=== PATIENT | female | born 1965 | race Hispanic/Latino ===

== ENCOUNTER 2018-02-28 09:55 | Outpatient (CLI) | payer BC ==
--- NOTE | 2018-03-04 10:32 | MMO ---
BILATERAL SCREENING MAMMOGRAMS: DATE: 02/28/18. This study is interpreted with the assistance of computer-aided detection. COMPARISON: 11/23/16, 03/27/13, 04/27/11. FINDINGS: Scattered fibroglandular densities are seen in each breast. There are benign-appearing calcification s seen in each breast. There is a faint cluster of microcalcification seen within the posterior dept h central right breast only definitely seen on the CT projection. This is not definitely seen on the MLO view. No dominant mass or architectural distortion is seen in either breast. IMPRESSION: BI-RADS category 0, incomplete assessment. Additional imaging is requested. Spot magnification comp ression views right breast in addition to 90-degree mediolateral view are recommended for further renato luation. POS: [facility]
== END 2018-02-28 09:56 | disposition home or self-care (01) ==
LOC: SCSMAMMO 09:55
PROVIDERS: ATTEND Family Medicine
DX: Z12.31 Encounter for screening mammogram for malignant neoplasm of breast (principal)
CPT/HCPCS: 77067

== ENCOUNTER 2018-03-27 08:42 | Outpatient (CLI) | payer BC | END 2018-03-27 08:43 | disposition home or self-care (01) | LOC: BICMAMMO 08:42 | PROVIDERS: ATTEND Family Medicine | DX: R92.1 Mammographic calcification found on diagnostic imaging of breast (principal) | CPT/HCPCS: G0279 ==

== ENCOUNTER 2018-07-29 09:29 | Outpatient (CLI) | payer BC ==
[~2018-07-29 09:29] MED LIST: Lidocaine 2% Jelly 5 ML TUBE ONE; Sodium Chloride 0.9% 15 ML NEB ONE
--- NOTE | 2018-07-29 11:30 | HP ---
DATE OF ADMISSION: 07/29/2018 HISTORY OF PRESENT ILLNESS: Ms. Greta De Dios is a very pleasant 53-year-old, who presents to the [facility] for evaluation of a wound of the right pannus. The patient states that the wound first b lubna after wearing pants, which were tight around her pannus. She states that she treated the wound with a cream her daughter purchased at [facility]. She states that the wound healed completely. The patien t states that the wound, however, recurred 6 months later, and subsequently, worsened in its appearan ce and increased in size. The patient states that she was seen by Dr. Crawley and prescribed Bactrob an ointment. She states that she later began alternating the application of Bactroban ointment with Vaseline. The patient states that the wound failed to improve in its appearance with the preceding r egimen. The patient states that she purchased a preparation from the [employer], which contains a topical anesthetic in addition to a topical antibiotic. The patient states that this preparation als o has not improved the appearance of her wound. The patient states that she was seen by Dr. Crawley on 07/22/2018, and at this time, referred to the Wound Center for further evaluation and treatment. The patient states that a specimen was sent to pathology, which showed no evidence of malignancy. PAST MEDICAL HISTORY: Arthritis. PAST SURGICAL HISTORY: 1. Bilateral tubal ligation. 2. Cholecystectomy. MEDICATIONS: 1. Meloxicam. 2. Vitamin B12. 3. Desvenlafaxine. 4. Ibuprofen. ALLERGIES: No known diagnosed allergies. SOCIAL HISTORY: Social history is negative for tobacco or ETOH use. FAMILY HISTORY: Family history is significant for diabetes mellitus. The patient states that her mo ther, 4 sisters, and a brother were all diagnosed with diabetes mellitus. Family history is also sig nificant for coronary artery disease. The patient states that her father was diagnosed with coronary artery disease. PHYSICAL EXAMINATION: VITAL SIGNS: Temperature 97.6, pulse 64, respirations 19, blood pressure 165/75. GENERAL: A 53-year-old female, sitting on chair in examination room, in no acute distress. HEENT: Normocephalic, atraumatic. NECK: No nuchal rigidity. CHEST: Clear to auscultation. CARDIAC: Regular rate and rhythm. ABDOMEN: Soft. EXTREMITIES: A wound over the right pannus is present, which measures approximately 6.1 x 1.6 cm. T he wound is composed of several smaller wounds. Granulation tissue is present within the margins of each wound. Nonviable tissue present within the margins of each wound was debrided with an excisiona l full-thickness debridement. No purulent drainage is associated with any of the wounds. No celluli tis of the right pannus is present. No maceration of the skin of the periwound of any of the wounds is noted. EXTREMITIES: No clubbing or cyanosis. NEUROLOGIC: Grossly nonfocal. ASSESSMENT AND PLAN: 1. Wound of right pannus as described above. As stated above, the wound is composed of multiple sma ller wounds. Dressing changes of Medihoney, 4 x 4s, and an ABD will be initiated today. These dress ing changes are to be performed on a daily basis after cleansing and irrigation. I will see Ms. Carrie henry again in 2 weeks. No antibiotics will be prescribed today based upon the appearance of the wound . The patient understands and is in agreement with the preceding treatment plan. 2. Arthritis.
== END 2018-07-29 09:30 | disposition home or self-care (01) ==
LOC: WCC 09:29
PROVIDERS: ATTEND Family Medicine
DX: S31.109D Unspecified open wound of abdominal wall, unspecified quadrant without penetration into peritoneal cavity, subsequent encounter (principal)
CPT/HCPCS: 11042; 99203; A4218; G0463

== ENCOUNTER 2018-08-12 08:45 | Outpatient (CLI) | payer BC ==
--- NOTE | 2018-08-12 10:46 | PRG ---
DATE OF SERVICE: 08/12/2018 HISTORY: Ms. Greta De Dios is a very pleasant 53-year-old, who presents to the [facility] for renato luation of a wound of the right pannus. The patient previously stated that the wound first began aft er wearing pants, which were tight around her pannus. She stated that she treated the wound with a c ream her daughter purchased at [facility]. She stated that the wound healed completely. The patient stated that the wound, however, recurred 6 months later and subsequently worsened in its appearance and inc reased in size. The patient stated that she was seen by Dr. Crawley and prescribed Bactroban ointmen t. She stated that she later began alternating the application of Bactroban ointment with Vaseline. The patient stated that the wound failed to improve in its appearance with the preceding regimen. T he patient stated that she purchased a preparation from the [employer], which contained a topical a nesthetic in addition to a topical antibiotic. The patient stated that this preparation also had not improved the appearance of her wound. The patient stated that she was seen by Dr. Crawley on 2017, and at this time, referred to the Wound Center for further evaluation and treatment. The patie nt stated that a specimen was previously sent to pathology prior to her being seen in the [facility], which showed no evidence of malignancy. After being seen in the Wound Center, the patient was michele austin on dressing changes of Medihoney. The patient states that she instead performed dressing changes of bacitracin, because she was unable to tolerate the application of Medihoney to her wound. PHYSICAL EXAMINATION: VITAL SIGNS: Temperature 97.7, pulse 65, respirations 19, blood pressure 189/83. ABDOMEN: The wound over the right pannus has improved in its appearance since the patient's last vis it. Granulation tissue is present within the margins. No purulent drainage is associated with the w ound. No cellulitis of the right pannus is present. No maceration of the skin of the periwound is n oted. ASSESSMENT AND PLAN: 1. Wound of right pannus. The patient states she would like to resume dressing changes of Medihoney . These dressing changes are to be performed on a daily basis after cleansing and irrigation. I hav e asked the patient to use gauze as a secondary dressing. I will see Ms. De Dios again in 3 weeks. The patient understands and is in agreement with the preceding treatment plan. 2. Arthritis.
== END 2018-08-12 08:46 | disposition home or self-care (01) ==
LOC: WCC 08:45
PROVIDERS: ATTEND Family Medicine
DX: S31.109A Unspecified open wound of abdominal wall, unspecified quadrant without penetration into peritoneal cavity, initial encounter (principal); M19.90 Unspecified osteoarthritis, unspecified site
CPT/HCPCS: 97602

== ENCOUNTER 2019-02-06 09:50 | Outpatient (CLI) | payer BC ==
--- NOTE | 2019-02-06 09:50 | PRG ---
DATE OF SERVICE: 02/06/2019 HISTORY: Ms. Greta De Dios is a very pleasant 53-year-old who presents to the [facility] Center for evaluation of an ulceration of the right anterior abdominal wall. The patient was previously seen in the Wound Center on 08/12/2018 for an ulceration in the same region. She states that the wound healed completely, but recurred. She states that the wound did not heal with the use of Medihoney. She states she is presently performing dressing changes of triple antibiotic ointment followed by a Band-Aid. She states that the wound has decreased in its dimensions with the preceding regimen. She denies irritation of the wound from her clothing. PHYSICAL EXAMINATION: VITAL SIGNS: Temperature 97.5, pulse 77, respirations 22, blood pressure 141/61. ABDOMEN: An ulceration of the right anterior abdominal wall is present which measures approximately 2.2 x 1.4 cm. Granulation tissue is present within the wound margins. Nonviable tissue present within the wound margins was debrided with an excisional full-thickness debridement. No purulent drainage is associated with the wound. No erythema of the skin surrounding the wound is present. No maceration of the skin of the periwound is noted. ASSESSMENT AND PLAN: 1. Ulceration of right anterior abdominal wall as described above. Dressing changes of SilvaSorb gel followed by Bordered gauze will be initiated today. These dressing changes are to be performed on a daily basis after cleansing and irrigation. The patient will be performing her own dressing changes. The patient has been asked to avoid the use of a Band-Aid as a secondary dressing. She has been encouraged to utilize bordered gauze. No antibiotics will be prescribed today based upon the appearance of the wound. I will see Ms. De Dios again in 2 weeks. 2. Arthritis. Job ID: [id number]
[2019-02-06] MEDS ORDERED: Sodium Chloride 0.9% 15 ML NEB ONE (16:21)
== END 2019-02-06 09:51 | disposition home or self-care (01) ==
LOC: WCC 09:50
PROVIDERS: ATTEND Family Medicine
DX: S31.109D Unspecified open wound of abdominal wall, unspecified quadrant without penetration into peritoneal cavity, subsequent encounter (principal); M19.90 Unspecified osteoarthritis, unspecified site
CPT/HCPCS: 11042; A4218

== ENCOUNTER 2019-02-28 03:53 | Emergency (ER) | payer BC ==
[2019-02-28] MEDS ORDERED: Ketorolac Tromethamine 60 MG/2 ML VIAL ONE (04:22)
--- NOTE | 2019-02-28 07:17 | RAD ---
RIGHT KNEE 4 VIEWS: Date: 02/28/19 INDICATION: Right knee pain. COMPARISON: None. FINDINGS: There is moderate right knee osteoarthrosis and joint capsular distention. No acute fracture or sublu xation is evident. The osteoarthrosis has progressed from the comparison of 2016. IMPRESSION: Worsening moderate osteoarthrosis with joint capsular distention. POS: [facility]
== END 2019-02-28 05:02 | disposition home or self-care (01) ==
LOC: ERS 03:53
DX: M25.561 Pain in right knee (principal); F32.9 Major depressive disorder, single episode, unspecified
CPT/HCPCS: 96372; J1885

== ENCOUNTER 2019-03-02 17:37 | Emergency (ER) | payer BC ==
[2019-03-02] MEDS ORDERED: Acetaminophen 500 MG TAB ONE (18:56)
[2019-03-02] MEDS ORDERED: Ondansetron PF 4 MG/2 ML Vial ONE (18:56)
--- NOTE | 2019-03-02 19:23 | CT ---
CT HEAD WITHOUT IV CONTRAST COMPARISON: None HISTORY: Headache and vomiting TECHNIQUE: Axial CT imaging at 5 mm intervals from vertex through skull base without contrast FINDINGS: There is no evidence of an acute infarction, hemorrhage, mass effect, or midline shift. The ventricul ar system is normal in size, shape, and position. Visualized paranasal sinuses are clear. Osseous structures appear intact. IMPRESSION: 1. No acute intracranial abnormality demonstrated.
[2019-03-02 19:58] LABS: #Eosinphils 0.1 thou/uL (0.0-0.7); #Monocytes 0.5 thou/uL (0.11-0.59); #Neutrophils 4.5 thou/uL (1.40-6.50); %Basophils 0.6 % (0.0-1.0); %Eosinophils 1.5 % (0.0-10.0); %Lymphocytes 28.4 % (21.0-51.0); %Monocytes 6.4 % (0.0-10.0); %Neutrophils 63.1 % (42.0-75.0); Hemoglobin 13.8 g/dL (12.0-16.0); Mean Platelet Volume 8.4 fL (7.4-10.4); Platelet Count 249 thou/uL (130-400); RBC Distribution Width 12.2 % (11.5-14.5); Red Blood Cell (RBC) Count 4.59 mill/uL (4.20-5.40); White Blood Cell (WBC) Count 7.1 thou/uL (4.8-10.8)
[2019-03-02 20:10] LABS: ALT (SGPT) 53 U/L (8-55); AST (SGOT) 63 U/L (5-34); Alkaline Phosphatase 73 U/L (40-150); Anion Gap 14 mmol/L (10-20); BUN (Urea Nitrogen) 17 mg/dL (9.8-20.1); Bilirubin, Total 0.7 mg/dL (0.2-1.2); Calc. Creatinine Clearance 0 mL/min (70-130); Carbon Dioxide 25 mmol/L (22-29); Chloride 103 mmol/L (98-107); Estimated GFR-MDRD 77; Glucose 149 mg/dL (70-105); Lipase 23 U/L (8-78); Potassium 3.6 mmol/L (3.5-5.1); Sodium 138 mmol/L (136-145)
== END 2019-03-02 21:18 | disposition home or self-care (01) ==
LOC: ERS 17:37
DX: R11.2 Nausea with vomiting, unspecified (principal); M19.90 Unspecified osteoarthritis, unspecified site; F32.9 Major depressive disorder, single episode, unspecified
CPT/HCPCS: 70450; 80053; 83690; 85025; 93005; 96360; J2405

== ENCOUNTER 2019-03-06 08:44 | Outpatient (CLI) | payer BC ==
[2019-03-06] MEDS ORDERED: Sodium Chloride 0.9% 15 ML NEB ONE (09:00)
--- NOTE | 2019-03-06 09:59 | PRG ---
DATE OF SERVICE: 03/06/2019 HISTORY: Ms. Greta De Dios is a very pleasant 53-year-old, who presents to the [facility] Center for evaluation of an ulceration of the right anterior abdominal wall. Previously, the patient was seen in the Wound Center on 08/12/2018 for an ulceration in the same region. She stated that the wound healed completely, but recurred. She stated that the wound did not heal with the use of Medihoney. The patient previously stated that the wound also did not heal completely with the use of triple antibiotic ointment, although, the wound had decreased in its dimensions. Since the patient's last visit, Ms. De Dios has been performing dressing changes of SilvaSorb gel sheet. The patient has no other complaints today. She denies any fever or chills. PHYSICAL EXAMINATION: VITAL SIGNS: Temperature 97.5, pulse 60, respirations 18, blood pressure 137/65. ABDOMEN: An ulceration of the right anterior abdominal wall is present, which measures approximately 2.5 x 2.0 cm. The dimensions of the wound at the time of the patient's visit on 02/06/2019 were approximately 2.2 x 1.4 cm. Granulation tissue is present within the wound margins. Nonviable tissue present within the wound margins. It was debrided with an excisional full-thickness debridement. No purulent drainage is associated with the wound. No erythema of the skin surrounding the wound is present. No maceration of the skin of the periwound is noted. ASSESSMENT AND PLAN: 1. Ulceration of right anterior abdominal wall as described above. Dressing changes of Multidex powder will be initiated today. These dressing changes are to be performed on a daily basis after cleansing and irrigation. The patient will be performing her own dressing changes. The patient will be utilizing gauze, secured with tape as a secondary dressing. I will see Ms. De Dios again in 2 weeks. 2. Arthritis. Job ID: [id number]
== END 2019-03-06 08:45 | disposition home or self-care (01) ==
LOC: WCC 08:44
PROVIDERS: ATTEND Family Medicine
DX: L98.499 Non-pressure chronic ulcer of skin of other sites with unspecified severity (principal); M19.90 Unspecified osteoarthritis, unspecified site
CPT/HCPCS: A4218

== ENCOUNTER 2019-07-19 17:41 | Emergency (ER) | payer BC ==
[2019-07-19 20:19] LABS: #Basophils 0.1 thou/uL (0.0-0.2); #Eosinphils 0.2 thou/uL (0.0-0.7); #Lymphocytes 4.1 thou/uL (1.20-3.40); #Monocytes 0.8 thou/uL (0.11-0.59); #Neutrophils 3.3 thou/uL (1.40-6.50); %Basophils 0.6 % (0.0-1.0); %Eosinophils 2.8 % (0.0-10.0); %Lymphocytes 48.3 % (21.0-51.0); %Monocytes 9.7 % (0.0-10.0); %Neutrophils 38.7 % (42.0-75.0); Hemoglobin 11.7 g/dL (12.0-16.0); Mean Corpuscular HGB CONC 34.7 g/dL (32.0-36.0); Mean Corpuscular Hemoglobin 31.6 pg (27.0-31.0); Mean Corpuscular Volume 91.2 fL (78.0-98.0); Mean Platelet Volume 7.4 fL (7.4-10.4); Platelet Count 238 thou/uL (130-400); RBC Distribution Width 12.4 % (11.5-14.5); Red Blood Cell (RBC) Count 3.69 mill/uL (4.20-5.40); White Blood Cell (WBC) Count 8.5 thou/uL (4.8-10.8)
[2019-07-19 20:41] LABS: ALT (SGPT) 27 U/L (8-55); AST (SGOT) 29 U/L (5-34); Albumin 3.5 g/dL (3.5-5.0); Alkaline Phosphatase 66 U/L (40-110); Anion Gap 11 mmol/L (10-20); BUN (Urea Nitrogen) 18 mg/dL (9.8-20.1); Bilirubin, Total 0.3 mg/dL (0.2-1.2); Calc. Creatinine Clearance 0 mL/min (70-130); Carbon Dioxide 26 mmol/L (22-29); Chloride 105 mmol/L (98-107); Estimated GFR-MDRD 74; Globulin 4.7 g/dL (2.4-3.5); Glucose 108 mg/dL (70-105); Potassium 3.5 mmol/L (3.5-5.1); Protein, Total 8.2 g/dL (6.0-8.3); Sodium 138 mmol/L (136-145)
[2019-07-19] MEDS ORDERED: Ketorolac Tromethamine 30 MG/ML VIAL ONE (22:25)
--- NOTE | 2019-07-19 22:38 | ULT ---
EXAM: Right lower extremity venous duplex: Deep veins evaluated with color Doppler, spectral analysis, and compression. INDICATIONS: Right lower extremity pain and edema. FINDINGS: Deep veins interrogated include common femoral vein, femoral vein, popliteal vein, and post erior tibial vein. These veins show normal compression and blood flow. No evidence of DVT. IMPRESSION: Negative Right venous duplex exam.
== END 2019-07-19 23:50 | disposition home or self-care (01) ==
LOC: ERS 17:41
DX: M79.604 Pain in right leg (principal); F32.9 Major depressive disorder, single episode, unspecified; M19.90 Unspecified osteoarthritis, unspecified site
CPT/HCPCS: 36415; 80053; 85025; 85379; 96372; J1885

== ENCOUNTER 2019-12-02 06:58 | Emergency (ER) | payer BC ==
[2019-12-02] MEDS ORDERED: Metoclopramide HCl 10 MG/2 ML VIAL ONE (09:30)
[2019-12-02] MEDS ORDERED: diphenhydrAMINE 50 MG/ML VIAL ONE (09:30)
--- NOTE | 2019-12-02 09:47 | CT ---
BRAIN CT WITHOUT IV CONTRAST: Date: 12/02/2019 HISTORY: Headache. COMPARISON: 03/02/2019. FINDINGS: No focal mass or midline shift. No intra or extra-axial hemorrhage. Sinuses and mastoids are clear of acute process. IMPRESSION: No significant acute intracranial process. POS: [facility]
[2019-12-02 09:56] LABS: Hemoglobin 11.5 g/dL (12.0-16.0); Mean Corpuscular HGB CONC 33.1 g/dL (32.0-36.0); Mean Corpuscular Hemoglobin 30.6 pg (27.0-31.0); Mean Corpuscular Volume 92.7 fL (78.0-98.0); Mean Platelet Volume 7.6 fL (7.4-10.4); Platelet Count 244 thou/uL (130-400); RBC Distribution Width 12.2 % (11.5-14.5); Red Blood Cell (RBC) Count 3.76 mill/uL (4.20-5.40); White Blood Cell (WBC) Count 8.1 thou/uL (4.8-10.8)
[2019-12-02 10:12] LABS: ALT (SGPT) 27 U/L (8-55); AST (SGOT) 31 U/L (5-34); Albumin 3.5 g/dL (3.5-5.0); Alkaline Phosphatase 68 U/L (40-110); Anion Gap 11 mmol/L (10-20); BUN (Urea Nitrogen) 14 mg/dL (9.8-20.1); Bilirubin, Total 0.3 mg/dL (0.2-1.2); Calc. Creatinine Clearance 0 mL/min (70-130); Calcium 9.2 mg/dL (7.8-10.44); Carbon Dioxide 27 mmol/L (22-29); Chloride 105 mmol/L (98-107); Estimated GFR-MDRD 83; Globulin 5.1 g/dL (2.4-3.5); Glucose 112 mg/dL (70-105); Potassium 3.6 mmol/L (3.5-5.1); Protein, Total 8.6 g/dL (6.0-8.3); Sodium 139 mmol/L (136-145)
[2019-12-02 10:27] LABS: Band 5 % (5-11); Lymphocytes 51 % (21-51); MDiff Complete? YES; Metamyelocyte 1 % (0-0); Monocytes 8 % (0-10); Myelocyte 1 % (0-0); Neutrophil 32 % (42-75); Platelet Morphology Comment Appears Adequate; RBC Morphology Normal
== END 2019-12-02 11:15 | disposition home or self-care (01) ==
LOC: ERS 06:58
DX: R51 Headache (principal); F32.9 Major depressive disorder, single episode, unspecified; M19.90 Unspecified osteoarthritis, unspecified site
CPT/HCPCS: 36415; 70450; 80053; 85025; 96365; 96375; J1200; J2765

== ENCOUNTER 2020-04-14 14:05 | Outpatient (CLI) | payer BC ==
--- NOTE | 2020-04-14 15:28 | MMO ---
Bilateral MAMMO Bilat Screen [facility]. CLINICAL HISTORY: Patient is 54 years old and is seen for screening. The patient has no family history of breast cancer. The patient has no personal history of cancer. VIEWS: The views performed were: bilateral craniocaudal with tomosynthesis and bilateral mediolateral oblique with tomosynthesis. FILMS COMPARED: The present examination has been compared to prior imaging studies performed at [facility] on 04/27/2011, 03/27/2013, 11/23/2016 and 03/27/2018. This study has been interpreted with the assistance of computer-aided detection. MAMMOGRAM FINDINGS: There are scattered fibroglandular densities. There are stable benign appearing calcifications seen in both breasts. There are no suspicious masses, suspicious calcifications, or new areas of architectural distortion. IMPRESSION: THERE IS NO MAMMOGRAPHIC EVIDENCE OF MALIGNANCY. A ROUTINE FOLLOW-UP MAMMOGRAM IN 1 YEAR IS RECOMMENDED. THE RESULTS OF THIS EXAM WERE SENT TO THE PATIENT. ACR BI-RADS Category 2 - Benign finding MAMMOGRAPHY NOTE: 1. A negative mammogram report should not delay a biopsy if a dominant of clinically suspicious mass is present. 2. Approximately 10% to 15% of breast cancers are not detected by mammography. 3. Adenosis and dense breasts may obscure an underlying neoplasm. Reported by: MADAN STEWART MD Electonically Signed: [id number]
== END 2020-04-14 14:06 | disposition home or self-care (01) ==
LOC: BICMAMMO 14:05
PROVIDERS: ATTEND Family Medicine
DX: Z12.31 Encounter for screening mammogram for malignant neoplasm of breast (principal)
CPT/HCPCS: 77063; 77067

== ENCOUNTER 2022-09-04 17:30 | Outpatient (CLI) | payer BC | END 2022-09-04 17:31 | disposition home or self-care (01) | LOC: SLEEPLAB 17:30 | PROVIDERS: ATTEND Family Medicine | DX: G47.33 Obstructive sleep apnea (adult) (pediatric) (principal); F41.9 Anxiety disorder, unspecified; E11.9 Type 2 diabetes mellitus without complications; E66.9 Obesity, unspecified; R06.83 Snoring | CPT/HCPCS: 95800 ==

== ENCOUNTER 2022-10-30 09:00 | Outpatient (CLI) | payer BC | END 2022-10-30 09:01 | disposition home or self-care (01) | LOC: BICMAMMO 09:00 | PROVIDERS: ATTEND Internal Medicine Medical Oncology | DX: Z12.31 Encounter for screening mammogram for malignant neoplasm of breast (principal) | CPT/HCPCS: 77063; 77067 ==

== ENCOUNTER 2023-04-20 11:00 | Outpatient (CLI) | payer BC | END 2023-04-20 11:01 | disposition home or self-care (01) | LOC: PET 11:00 | PROVIDERS: ATTEND Internal Medicine | DX: C91.10 Chronic lymphocytic leukemia of B-cell type not having achieved remission (principal); C85.92 Non-Hodgkin lymphoma, unspecified, intrathoracic lymph nodes | CPT/HCPCS: 78815; A9552 ==

== ENCOUNTER 2023-05-26 22:27 | Emergency (ER) | payer BC ==
[2023-05-26] MEDS ORDERED: Dexamethasone 4 MG TAB ONE (23:52)
== END 2023-05-27 00:06 | disposition home or self-care (01) ==
LOC: ERS 22:27
DX: L95.9 Vasculitis limited to the skin, unspecified (principal)
CPT/HCPCS: J8540